=== PATIENT | male | born 1945 | race Caucasian/White ===

== ENCOUNTER 2022-02-26 10:05 | Outpatient (CLI) | payer MEDICARE, SELFPAY ==
[2022-02-26 14:08] LABS: Chloride* 98 mmol/L (96-114); Potassium* 4.4 mmol/L (3.6-5.1); Sodium* 134 mmol/L (135-149)
[2022-02-26 14:10] LABS: Estimated Glomerular Filt Rate 78 ml/min
[2022-02-26 14:11] LABS: Blood Urea Nitrogen* 10 mg/dL (7-30); Calcium* 10.3 mg/dL (8.4-10.6); Carbon Dioxide* 24 mmol/L (20-32); Glucose* 97 mg/dL (60-115)
== END 2022-02-26 10:06 | disposition home or self-care (01) ==
LOC: FRMREF 10:18
PROVIDERS: PCP Family Medicine; Visit Provider Family Medicine
DX: R10.9 Unspecified abdominal pain (principal); I10 Essential (primary) hypertension
CPT/HCPCS: 80048

== ENCOUNTER 2022-03-12 08:52 | Outpatient (CLI) | payer MEDICARE, SELFPAY ==
[2022-03-19 08:08] LABS: Ova and Parasite, Fecal Negative (Negative)
== END 2022-03-12 08:53 | disposition home or self-care (01) ==
PROVIDERS: PCP Family Medicine; Visit Provider Family Medicine
DX: R19.7 Diarrhea, unspecified (principal)
CPT/HCPCS: 87045; 87046; 87077; 87177; 87209; 87427

== ENCOUNTER 2022-03-25 16:10 | Outpatient (CLI) | payer MEDICARE, SELFPAY ==
[2022-03-25 13:36] LABS: Albumin* 4.4 g/dL (3.3-5.0); Chloride* 102 mmol/L (96-114); Sodium* 136 mmol/L (135-149)
[2022-03-25 13:37] LABS: Potassium* 4.4 mmol/L (3.6-5.1)
[2022-03-25 13:39] LABS: Alanine Aminotransferase* 28 U/L (4-50); Alkaline Phosphatase* 107 U/L (40-150); Aspartate Amino Transferase* 35 U/L (12-35); Bilirubin Total* 0.9 mg/dL (0.1-1.5); Blood Urea Nitrogen* 11 mg/dL (7-30); Calcium* 10.1 mg/dL (8.4-10.6); Carbon Dioxide* 25 mmol/L (20-32); Cholesterol* 151 mg/dL (90-199); Estimated Glomerular Filt Rate 78 ml/min; Glucose* 101 mg/dL (60-115); Total Protein* 7.2 g/dL (6.0-8.3); Triglycerides* 84 mg/dL (40-149)
[2022-03-25 13:40] LABS: HDL Cholesterol* 60 mg/dL (>=40); LDL Cholesterol Calculated 74 mg/dL (<100); Magnesium* 1.9 mg/dL (1.5-2.6)
[2022-03-25 22:27] LABS: Microalbumin Urine 1 mg/dL
[2022-03-25 22:29] LABS: Creatinine Urine 66.2 mg/dL; Microalbumin Creatinine Ratio 10 mg/g (0-30)
== END 2022-03-25 16:11 | disposition home or self-care (01) ==
PROVIDERS: PCP Family Medicine; Visit Provider Family Medicine
DX: E78.5 Hyperlipidemia, unspecified (principal); I10 Essential (primary) hypertension
CPT/HCPCS: 80053; 80061; 82043; 82570; 83735

== ENCOUNTER 2022-08-16 08:16 | Outpatient (CLI) | payer MEDICARE, SELFPAY ==
[2022-08-16 13:09] LABS: Albumin* 4.3 g/dL (3.3-5.0); Chloride* 103 mmol/L (96-114)
[2022-08-16 13:10] LABS: Potassium* 4.7 mmol/L (3.6-5.1); Sodium* 136 mmol/L (135-149)
[2022-08-16 13:12] LABS: Alanine Aminotransferase* 29 U/L (4-50); Alkaline Phosphatase* 84 U/L (40-150); Aspartate Amino Transferase* 30 U/L (12-35); Bilirubin Total* 0.8 mg/dL (0.1-1.5); Blood Urea Nitrogen* 12 mg/dL (7-30); Carbon Dioxide* 29 mmol/L (20-32); Cholesterol* 152 mg/dL (90-199); Estimated Glomerular Filt Rate 78 ml/min; Glucose* 103 mg/dL (60-115); Total Protein* 7.2 g/dL (6.0-8.3)
[2022-08-16 13:13] LABS: Calcium* 9.9 mg/dL (8.4-10.6); HDL Cholesterol* 59 mg/dL (>=40); LDL Cholesterol Calculated 79 mg/dL (<100); Triglycerides* 72 mg/dL (40-149)
[2022-08-16 13:28] LABS: Creatinine Urine 95.4 mg/dL
[2022-08-16 13:32] LABS: Microalbumin Creatinine Ratio 10 mg/g (0-30); Microalbumin Urine 1 mg/dL
[2022-08-16 13:45] LABS: PSA Screen* 1.78 ng/mL (0.10-4.00)
== END 2022-08-16 08:17 | disposition home or self-care (01) ==
LOC: FRMREF 08:18
PROVIDERS: PCP Family Medicine; Visit Provider Family Medicine
DX: E78.5 Hyperlipidemia, unspecified (principal); I10 Essential (primary) hypertension; Z12.5 Encounter for screening for malignant neoplasm of prostate
CPT/HCPCS: 80053; 80061; 82043; 82570; 84153

== ENCOUNTER 2023-01-08 11:56 | Outpatient (CLI) | payer MEDICARE, SELFPAY | END 2023-01-08 11:57 | disposition home or self-care (01) | PROVIDERS: PCP Family Medicine; Visit Provider Family Medicine | DX: E87.1 Hypo-osmolality and hyponatremia (principal); I10 Essential (primary) hypertension; R07.9 Chest pain, unspecified | CPT/HCPCS: 80048 ==

== ENCOUNTER 2023-03-26 07:29 | Outpatient (CLI) | payer MEDICARE, SELFPAY | END 2023-03-26 07:30 | disposition home or self-care (01) | LOC: NFLDREF 15:30 | PROVIDERS: PCP Family Medicine; Referring Provider Family Medicine | DX: E87.1 Hypo-osmolality and hyponatremia (principal); I10 Essential (primary) hypertension; E55.9 Vitamin D deficiency, unspecified; E78.5 Hyperlipidemia, unspecified; R33.9 Retention of urine, unspecified | CPT/HCPCS: 80053; 80061; 82306; 83735; 84153 ==

== ENCOUNTER 2023-07-07 10:05 | Outpatient (CLI) | payer MEDICARE, SELFPAY ==
--- OUTSIDE RECORDS SUMMARY | 2023-07-07 10:35 | XMS_ITS | Continuity of Care Document ---
Author Name [facility] Organization [facility] Care Team Providers Care Medical Imaging Technician Name Role Phone [facility] Unavailable Unavailable Problems Combined list of problems from Department of Defense and Veterans Affairs facilities. It does not include entries that were removed or entered in error. Problem Status Onset Date Problem Type Date of Resolution Comments Source Cataract (SCT 74661205) Active Condition Apr 12, 2020 Entered By: MIRANDA LAUGHLIN Comment: Right cataract surgery [facility] Essential hypertension (SNOMED CT 14692684) Active Condition [facility] Family social history Active Condition Mar 27, 2021 Entered By: MIRANDA LAUGHLIN Comment[facility] Entered By: MIRANDA LAUGHLIN Comment: Quit smoking >15 yrs ago.Apr 04, 2022 Entered By: MIRANDA LAUGHLIN Comment: Cares for at home, she has early AD. 6 children, assist with care. [facility] Gastro-esophageal reflux disease (SNOMED CT 337760867) Active Condition [facility] Glaucoma Active Condition [facility] Hearing Loss, Partial * (ICD-9-CM 389.9) [facility] History of Polyp of Colon (SCT 866383873) Active Condition Apr 12, 2020 Entered By: MIRANDA LAUGHLIN Comment: Last colonscopy 12/2014 at [facility] in [place]: 1 polyp, repeat 5 years [facility] History of surgery Active Condition Apr 12, 2020 Entered By: MIRANDA LAUGHLIN Comment: T&AOct 2019 Entered By: MIRANDA LAUGHLIN Comment: TURP [facility] Hydronephrosis [facility] Hyperlipidemia [facility] Impaired glucose tolerance Active Condition [facility] Male erectile disorder (ICD-9-CM 302.72/607.84) [facility] Neurogenic bladder Active Condition Apr 04, 2022 Entered By: MIRANDA LAUGHLIN Comment: ISC 6 x daily [facility] Osteopenia Active Condition Apr 12 Entered By: MIRANDA LAUGHLIN Comment: Dexa scan 06/08; osteopeniaOct 2019 Entered By: MIRANDA LAUGHLIN Comment: T6 compression fracture [facility] Personal History of Exposure to Agent [place] (ICD-9-CM V15.89) Active Condition [facility] Subjective tinnitus (ICD-9-CM 388.31) Active Condition [facility] Syncope Active Condition [facility] Diagnosis: ICD-10-CM I10 Essential (primary) hypertension Active Diagnosis [facility] Diagnosis: ICD-10-CM 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 Medication Details Route Status Patient Instructions Prescription Expires Prescription Number Last Dispense Date Ordering Provider Order Date Source ALENDRONATE 70MG TAB TAKE ONE TABLET BY MOUTH EVERY WEEK FOR OSTEOPOR OSIS -TAKE FIRST THING IN THE MORNING WITH WATER ONLY -AFTER TAKING, DO NOT EAT OR DRINK FOR 30 MINUTES AND REMAIN UPRIGHT FOR 30 MINUTES ORALLY ACTIVE 04/11/2024 [id number] 3 MUNIRA LAUGHLIN F 2022 [facility] ALENDRONATE 70MG TAB TAKE ONE TABLET BY MOUTH EVERY WEEK FOR OSTEOPOR OSIS -TAKE FIRST THING IN THE MORNING WITH WATER ONLY -AFTER TAKING, DO NOT EAT OR DRINK FOR 30 MINUTES AND REMAIN UPRIGHT FOR 30 MINUTES ORALLY DISCONT INUED 04/05/2023 [id number] 3 MUNIRA LAUGHLIN 2021 [facility] AMLODIPINE BESYLATE 10MG TAB TAKE ONE TABLET BY MOUTH EVERY DAY ORALLY ACTIVE GARRICK SALAZAR ANTLyubov A 2012 [facility] ATORVASTATI N [place] 80MG TAB TAKE ONE-HALF TABLET BY MOUTH AT BEDTIME ORALLY ACTIVE NAZANIN WALLACE A 2015 [facility] CEPHALEXIN 250MG CAP TAKE 1 CAPSULE BY MOUTH DAILY ORALLY ACTIVE MUNIRA LAUGHLIN LSEY F 2020 [facility] FLUTICASONE SOLN,NASAL SPRAY IN EACH NOSTRIL NASAL ACTIVE WALLACENAZANINA A 2014 [facility] LOSARTAN 50MG TAB TAKE TWO TABLETS BY MOUTH EVERY DAY ORALLY ACTIVE MUNIRA LAUGHLIN LSEY F 2020 [facility] LUBRICATING JELLY,TOP,B ACTERIOSTAT IC APPLY JELLY DIRECTED CHEMICAL PACKAGER AL USE ONLY ACTIVE 04/11/2024 [id number] 4 MUNIRA LAUGHLIN LSEY F 2022 [facility] LUBRICATING JELLY,TOP,B ACTERIOSTAT IC APPLY JELLY DIRECTED CHEMICAL PACKAGER AL USE ONLY DISCONT INUED 04/05/2023 [id number] 3 MUNIRA LAUGHLIN LSEY F 2021 [facility] METOPROLOL SUCCINATE 50MG TAB,SA TAKE ONE TABLET BY MOUTH TWICE A DAY ORALLY ACTIVE MUNIRA LAUGHLIN LSEY F 2022 [facility] OMEPRAZOLE 20MG CAP,EC TAKE 1 CAPSULE BY MOUTH EVERY DAY ORALLY ACTIVE NAZANIN WALLACE A 2014 [facility] POLYVINYL ALCOHOL 1.4%/POVIDO NE (PF) SOLN,OPH INSTILL 1 DROP IN RIGHT EYE SIX TIMES A DAY NEEDED FOR EYE IRRITATI ON RIGHT EYE ACTIVE 02/20/2024 [id number] 3 TRACE HENNESSY RTHA 2022 [facility] POTASSIUM CHLORIDE 10MEQ TAB,SA TAKE ONE TABLET BY MOUTH ORALLY ACTIVE MUNIRA LAUGHLIN LSEY F 2020 [facility] SILDENAFIL CITRATE 100MG TAB TAKE ONE TABLET BY MOUTH NEEDED FOR ERECTILE DYSFUNCT ION ORALLY ACTIVE MUNIRA LAUGHLINEY F 2020 [facility] Allergies, Adverse Reactions, Alerts Combined list of allergies from Department of Defense and Veterans Affairs facilities. It does not include entries that were removed or entered in error. Substance Category Reaction Severity Reaction type Status Date Reported Comments Source SULFA DRUGS Propensity to adverse reactions to drug (finding) active 3 [facility] Immunizations Combined list of available immunizations from the Department of Defense and Veterans Affairs facilities. Immunization Series Date Given Administered By Site Reaction Lot Number CVX Code Drug Spa Assistant Manager Status Comments Source INFLUENZA, HIGH-DOSE, QUADRIVALENT 2022 197 complet [facility] PNEUMOCOCCAL CONJUGATE PCV 13 2022 133 complet [facility] COVID-19 (PFIZER), MRNA, LNP-S, BIVALENT, PF, 30 MCG/0.3 ML DOSE 2021 300 complet [facility] INFLUENZA, HIGH-DOSE, QUADRIVALENT 2021 197 complet [facility] INFLUENZA, UNSPECIFIED FORMULATION 2021 88 complet [facility] COVID-19 (PFIZER), MRNA, LNP-S, PF, 30 MCG/0.3 ML DOSE 4 2020 208 complet [facility] COVID-19 (PFIZER), MRNA, LNP-S, PF, 30 MCG/0.3 ML DOSE 3 2020 208 complet [facility] INFLUENZA, HIGH-DOSE, QUADRIVALENT 2020 197 complet [facility] INFLUENZA, UNSPECIFIED FORMULATION 2020 88 complet [facility] COVID-19 (PFIZER), MRNA, LNP-S, PF, 30 MCG/0.3 ML DOSE 2020 208 complet [facility] ZOSTER RECOMBINANT 2020 187 complet [facility] ZOSTER RECOMBINANT 2 2020 187 complet ed [facility] COVID-19 (PFIZER), MRNA, LNP-S, PF, 30 MCG/0.3 ML DOSE 2 2020 208 complet [facility] COVID-19 (PFIZER), MRNA, LNP-S, PF, 30 MCG/0.3 ML DOSE 2020 208 complet [facility] COVID-19 (PFIZER), MRNA, LNP-S, PF, 30 MCG/0.3 ML DOSE 1 2020 208 complet [facility] ZOSTER RECOMBINANT 1 2019 187 complet ed [facility] TDAP 2019 115 complet ed [facility] INFLUENZA, UNSPECIFIED FORMULATION 2019 88 complet ed [facility] INFLUENZA, HIGH-DOSE, QUADRIVALENT 2019 197 complet ed [facility] ZOSTER RECOMBINANT 1 2019 187 complet ed [facility] INFLUENZA, RECOMBINANT, QUADRIVALENT, INJECTABLE, PRESERVATIVE FREE 2018 185 complet ed [facility] INFLUENZA, HIGH DOSE SEASONAL 2016 135 complet ed [facility] INFLUENZA, HIGH DOSE SEASONAL 2016 135 complet ed [facility] INFLUENZA, HIGH DOSE SEASONAL 2015 135 complet ed [facility] INFLUENZA, SEASONAL, INJECTABLE 2014 141 complet ed [facility] PNEUMOCOCCAL CONJUGATE PCV 13 2014 133 complet ed [facility] INFLUENZA, SEASONAL, INJECTABLE 2013 141 complet ed [facility] INFLUENZA, HIGH DOSE SEASONAL 2013 135 complet ed [facility] TDAP 2013 115 complet ed [facility] hkline [id number] 11/21/15 [facility] INFLUENZA, UNSPECIFIED FORMULATION 2012 88 complet ed [facility] INFLUENZA, SEASONAL, INJECTABLE, PRESERVATIVE FREE 2012 140 complet ed [facility] ZOSTER LIVE 2012 121 complet ed [employer] [facility] INFLUENZA, SEASONAL, INJECTABLE, PRESERVATIVE FREE 2011 140 complet ed [facility] PNEUMOCOCCAL POLYSACCHARID E PPV23 2011 33 complet ed [facility] INFLUENZA, UNSPECIFIED FORMULATION 2011 88 complet ed [facility] PNEUMOCOCCAL, UNSPECIFIED FORMULATION 2011 109 complet ed [facility] INFLUENZA, SEASONAL, INJECTABLE 2010 141 complet ed [facility] INFLUENZA, SEASONAL, INJECTABLE, PRESERVATIVE FREE 2009 140 complet ed [facility] INFLUENZA, SEASONAL, INJECTABLE, PRESERVATIVE FREE 2008 140 complet ed [facility] INFLUENZA, SEASONAL, INJECTABLE 2007 141 complet ed [facility] Encounters Combined list of: 1) Encounters from Department of [facility] facilities going back up to thelast 18 months. 2) Encounters from the Department of [facility] facilities going back up to 280 months. Location Location Details Encounter Type Encounter Number Reason For Visit Attending Provider ADM Date DC Date Status Disposition Source [place] [facility] Outpatient Encounter [id number] 02/26 [facility] [place] [facility] Outpatient Encounter [id number] 02/26 [facility] [place] [facility] Outpatient Encounter [id number] 03/23 [facility] [place] [facility] Outpatient Encounter [id number] [facility] O/P EST MOD 30-39 MIN [id number] Diagnos is: ICD-10- CM H40.141 3 Capslr glaucom a w/pseud xf lens, right eye, severe stage<b r/> TORSTEN HENNESSY SHARON 04/02 [facility] [place] [facility] OFFICE O/P EST HI 40-54 MIN [id number] Diagnos is: ICD-10- CM E78.5 Hyperli pidemia , unspeci fied
GEREMIAS LAUGHLIN SEArnold F 04/04 [facility] [place] [facility] Outpatient Encounter [id number] 04/08 [facility] [place] [facility] Outpatient Encounter [id number] [facility] VISUAL FIELD EXAMINATIO N(S) [id number] Diagnos is: ICD-10- CM H40.141 3 Capslr glaucom a w/pseud xf lens, right eye, severe stage<b r/> JEROME GOMEZ 10/01 [facility] OFFICE O/P EST MOD 30-39 MIN [id number] Diagnos is: ICD-10- CM H40.141 3 Capslr glaucom a w/pseud xf lens, right eye, severe stage<b r/> ERIC RASHI DOZIER A 10/01 [facility] Outpatient Encounter [id number] QUINCYDAVI STEPHANIE MARRUFO 02/19 [facility] OFFICE O/P EST MOD 30-39 MIN [id number] Diagnos is: ICD-10- CM H40.141 3 Capslr glaucom a w/pseud xf lens, right eye, severe stage<b r/> HAYDEN HERNANDEZ 02/19 [facility] Outpatient Encounter [id number] 03/19 [facility] Outpatient Encounter [id number] 03/23 [facility] VISUAL FIELD EXAMINATIO N(S) [id number] Diagnos is: ICD-10- CM H40.10X 3 Unspeci fied open-an gle glaucom a, severe stage<b r/> JESS GOMEZ 04/01 [facility] OFFICE O/P EST MOD 30-39 MIN [id number] Diagnos is: ICD-10- CM H40.141 3 Capslr glaucom a w/pseud xf lens, right eye, severe stage<b r/> TORSTEN HENNESSY 04/01 [facility] Outpatient Encounter [id number] 04/01 [facility] Outpatient Encounter [id number] Diagnos is: ICD-10- CM I10 Essenti al (primar y) hyperte nsion<b r/> GEREMIAS LAUGHLIN F 04/11 [facility] Social History Combined list of available smoking, tobacco, and other social history from Department of Defense and Veterans Affairs facilities. Social History Type Response Date Comment Sourc e Tobacco smoking status NHIS VA-TOBACCO FORMER USER 04/11/2023 [facility] History of tobacco use VA-TOBACCO QUIT 1 5 YRS OR MORE 04/11/2023 [facility] History of tobacco use VA-TOBACCO FORMER USER 04/04/2022 [facility] History of tobacco use VA-TOBACCO FORMER USER 03/28/2021 [facility] History of tobacco use VA-TOBACCO FORMER USER 04/12/2020 [facility] History of tobacco use VA-TOBACCO FORMER USER 06/24/2018 [facility] History of tobacco use FORMER TOBACCO US ER 7Y OR GREATER 09/23/2017 [facility] History of tobacco use FORMER TOBACCO US ER 7Y OR GREATER 01/02/2017 [facility] History of tobacco use FORMER TOBACCO US ER 7Y OR GREATER 01/18/2016 [facility] History of tobacco use FORMER TOBACCO US ER 7Y OR GREATER 01/10/2015 [facility] History of tobacco use FORMER TOBACCO US ER 7Y OR GREATER 01/06/2014 [facility] History of tobacco use FORMER TOBACCO US ER 7Y OR GREATER 10/19/2012 [facility] Plan of Care List of future care activities from Department of Veterans Affairs facilities. Additional future care activities may be listed in the Assessment and Plan section. Date/Time Care Activity Care Activity Detail Facili ty 09/30/2023 AMBULATORY - SURGERY AMBULATORY - SURGERY [facility]
--- OUTSIDE RECORDS SUMMARY | 2023-07-07 10:36 | XMS_ITS | Clinical Summary ---
Author Name Unknown Organization [facility] Address [place], [place] [address] Care Team Providers Care Telecommunications Operator Name Role Phone Matias Terry MD Primary Care Provider [phone] Allergies Active Allergy Reactions Criticality Noted Date Comments Sulfa (Sulfonamide Antibiotics) Anaphylaxis Medications Medication Sig Dispensed Refills Start Date End Date Status ASPIRIN 81 MG TAB, DELAYED RELEASE take 1 tablet (81mg) by oral route once daily 0 11/12/2005 Active VIAGRA 100 MG TABIndications:Impot ence of organic origin Take one half to one tablet 30 minutes to 4 hours before sexual activity (optimally 1 hour). Do not exceed one dose daily. 10 3 06/02/2006 Active CYCLOBENZAPRINE 10 MG TAB take 1 tablet (10mg) by oral route 2 times per day 10 0 10/30/2006 Active hydrochlorothiazide (HCTZ) 25 mg tablet Take 2 tablets by mouth once daily. 30 tablet 0 11/17/2012 Active lisinopril (PRINIVIL; ZESTRIL) 20 mg tablet Take 1 tablet by mouth once daily. 0 11/17/2012 Active Omeprazole 20 mg tablet Take 1 tablet by mouth once daily. 0 11/17/2012 Active Catheter (SELF-CATH) 14-16 Fr- misc As directed. 120 Each 3 07/20/2013 Active pravastatin (PRAVACHOL) 20 mg tablet Take 1 tablet by mouth at bedtime. 0 10/19/2013 Active amLODIPine (NORVASC) 10 mg tablet Take 1 tablet by mouth once daily. 0 10/19/2013 Active losartan (COZAAR) 50 mg tablet Take 1/2 tablet by mouth daily 0 02/14/2015 Active Active Problems Problem Noted Date Diagnosed Date Colon polyp 04/25/2010 Overview: Colonoscopy 03/2010 polyp repeat in 5 years Colonoscopy 01/2015 polyp repeat in 5 years Myopia 11/12/2005 Presbyopia 11/12/2005 Hypermetropia 11/12/2005 Regular astigmatism 11/12/2005 Cortical senile cataract 11/12/2005 TOBACCO USE 06/07/2005 HYPERCHOLESTEROLEMIA, PURE 06/07/2005 SINUSITIS - ACUTE 11/27/2004 Unspecified essential hypertension 01/06/2004 EXAMINATION, ROUTINE MEDICAL 05/18/2001 FREQUENCY, URINARY 05/18/2001 IMPOTENCE, 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 ~? Prostate cancer. Relation Name Status Comments Other Social History Tobacco Use Types Packs/Day Years Used Date Smoking Tobacco: Former Cigarettes Q uit: 06/24/2005 Smokeless Tobacco: Never Tobacco Cessation:Counseling Given: Yes Alcohol Use Standard Drinks/Week Comments Yes 240 (1 standard drink = 0.6 oz p ure alcohol) Sex and Gender Information Value Date Recorded Sex Assigned at Not on file Gender Identity Not on file Sexual Orientation Not on file Obstetrics History Last Filed Vital Signs Vital Sign Reading Time Taken Comments Blood Pressure 133/82 02/14/2015 8:49 AM CDT Pulse 75 02/14/2015 8:49 AM CDT Temperature 36.7 ??C (98 ??F) 10/19/2013 8:06 AM CDT Respiratory Rate 20 08/07/2005 4:45 PM CLIP RIVETER Oxygen Saturation 100% 02/14/2015 8:49 AM CDT Inhaled Oxygen Concentration - - Weight 91.6 kg (202 lb) 10/19/2013 8:06 AM CDT Height 185.4 cm (6' 1) 10/19/2013 8:06 AM CDT Body Mass Index 26.65 10/19/2013 8:06 AM CDT Plan of Treatment Health Maintenance Due Date Last Done Comments COVID-19 vaccine series (#1) [birth year]27/1946 Tdap 1956 Depression screening for age 12+ 1957 BMI (ht and wt on same day) for age 18+ 09/26/1963 Hepatitis C screening for age 18-79 09/26/1963 Tetanus booster 1965 Zoster (shingles) series for age 50+ (1 of 2) 09/25/18 96 Pneumococcal series for age 65+ (1 of 1 - PCV) 011 Influenza for age 65+ 02/21/2023 Care Teams Telecommunications Operator Relationship Specialty Start Date End Date Matias Terry MD PCP - General Family Practice 02/14/15
== END 2023-07-07 10:06 | disposition home or self-care (01) ==
LOC: FRMREF 10:06
PROVIDERS: PCP Family Medicine; Visit Provider Physician Assistant Medical
DX: R42 Dizziness and giddiness (principal); I10 Essential (primary) hypertension; N30.01 Acute cystitis with hematuria; B96.1 Klebsiella pneumoniae [K. pneumoniae] as the cause of diseases classified elsewhere; E55.9 Vitamin D deficiency, unspecified
CPT/HCPCS: 80048; 82306; 87086; 87186

== ENCOUNTER 2024-01-19 10:13 | Outpatient (CLI) | payer MEDICARE, SELFPAY ==
--- OUTSIDE RECORDS SUMMARY | 2024-01-19 10:25 | XMS_ITS | Clinical Summary ---
Author Organization [facility] Address [place], [place] [address] Care Team Providers Care Crawler Crane Operator Name Role Phone Matias Terry MD Primary Care Provider [phone] Allergies Active Allergy Reactions Criticality Noted Date [...] CDT Respiratory Rate 20 08/07/2005 4:45 PM FUNCTIONAL MENTAL DISABILITY TEACHER Oxygen Saturation 100% 02/14/2015 8:49 AM CDT Inhaled Oxygen Concentration - - Weight 91.6 kg (202 lb) 10/19/2013 8:06 AM CDT Height 185.4 cm (6' 1) 10/19/2013 8:06 AM CDT Body Mass Index 26.65 10/19/2013 8:06 AM CDT Plan of Treatment Health Maintenance Due Date Last Done Comments Tdap 1956 Depression screening for age 12+ 1957 BMI (ht and wt on same day) for age 18+ 09/26/1963 Hepatitis C screening for age 18-79 09/26/1963 Tetanus booster 1965 Zoster (shingles) series for age 50+ (1 of 2) 09/25/18 96 Pneumococcal series for age 65+ (1 of 1 - PCV) 011 COVID-19 vaccine series (1 - 2022-24 season) 3 Influenza for age 65+ 02/22/2024 Care Teams Crawler Crane Operator Relationship Specialty Start Date End Date Matias Terry MD PCP - General Family Practice 02/14/15
--- OUTSIDE RECORDS SUMMARY | 2024-01-19 10:25 | XMS_ITS | Continuity of Care Document ---
Author Name [facility] Organization [facility] Care Team Providers Care Dietary Manager Name Role Phone [facility] Unavailable Unavailable Problems Combined list of problems from Department of Defense and Veterans Affairs facilities. It does not include entries that were removed or entered in error. Problem Status Onset Date Problem Type Date of Resolution Comments Source Cataract (SCT [id number]) Active Condition Apr 12, 2020 Entered By: MIRANDA LAUGHLIN Comment: Right cataract surgery [facility] Essential hypertension (SNOMED CT 95160983) Active Condition [facility] Family social history Active Condition Mar 27, 2021 Entered By: MIRANDA LAUGHLIN Comment[facility] Entered By: MIRANDA ALUGHLIN Comment: Quit smoking >15 yrs ago.Apr 04, 2022 Entered By: MIRANDA LAUGHLIN Comment: Cares for at home, she has early AD. 6 children, assist with care. [facility] Gastro-esophageal reflux disease (SNOMED CT 225956274) Active Condition [facility] Glaucoma Active Condition [facility] Hearing Loss, Partial * (ICD-9-CM 389.9) [facility] History of Polyp of Colon (SCT 102935769) Active Condition Apr 12, 2020 Entered By: MIRANDA LAUGHLIN Comment: Last colonscopy 12/2014 at [facility] in [place]: 1 polyp, repeat 5 years [facility] History of surgery Active Condition Apr 12, 2020 Entered By: MIRANDA LAUGHLIN Comment: T&AOct 2019 Entered By: MIRANDA LAUGHLIN Comment: TURP [facility] Hydronephrosis [facility] Hyperlipidemia [facility] Impaired glucose tolerance Active Condition [facility] Male erectile disorder (ICD-9-CM 302.72/607.84) [facility] Neurogenic bladder Active Condition Apr 04, 2022 Entered By: MIRANDA LAUGHLIN Comment: ISC 6 x daily [facility] Osteopenia Active Condition Apr 12 020 Entered By: MIRANDA LAUGHLIN Comment: Dexa scan 06/08; osteopeniaOct 2019 Entered By: MIRANDA LAUGHLIN Comment: T6 compression fracture [facility] Personal History of Exposure to Agent Ware (ICD-9-CM V15.89) Active Condition [facility] Subjective tinnitus (ICD-9-CM 388.31) Active Condition [facility] Syncope Active Condition [facility] Diagnosis: ICD-10-CM H40.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 Medication Details Route Status Patient Instructions Prescription Expires Prescription Number Last Dispense Date Ordering Provider Order Date Order Qty Source ALENDRONATE 70MG TAB ALENDRON ATE 70MG TAB Active TAKE ONE TABLET BY MOUTH EVERY WEEK FOR OSTEOPOR OSIS -TAKE FIRST THING IN THE MORNING WITH WATER ONLY -AFTER TAKING, DO NOT EAT OR DRINK FOR 30 MINUTES AND REMAIN UPRIGHT FOR 30 MINUTES Apr 11, 2023Apr 11, 2024 [id number] E Jan 02, 2024 David LAUGHLIN [facility] ORAL ACTIVE 04/11/2024 [id number] MUNIRA LAUGHLIN F 2022 12 [facility] ALENDRONATE 70MG TAB ALENDRON ATE 70MG TAB Disconti nued TAKE ONE TABLET BY MOUTH EVERY WEEK FOR OSTEOPOR OSIS -TAKE FIRST THING IN THE MORNING WITH WATER ONLY -AFTER TAKING, DO NOT EAT OR DRINK FOR 30 MINUTES AND REMAIN UPRIGHT FOR 30 MINUTES Apr 04, 2022 12 Apr 05, 2023 [id number] D Feb 03, 2023 David LAUGHLIN [facility] ORAL DISCONT INUED 04/05/2023 [id number] MUNIRA LAUGHLIN 2021 12 [place] [facility] AMLODIPINE BESYLATE 10MG TAB AMLODIPI NE BESYLATE 10MG TAB Non-VA TAKE ONE TABLET BY MOUTH EVERY DAY Dec 09, 2012 Non-[facility] Document ed by: HILDA SALAZAR Document ed at: [facility] ORAL ACTIVE GARRICK SALAZAR A 2012 [facility] ATORVASTATI N CA 80MG TAB ATORVAST ATIN CA 80MG TAB Non-VA TAKE ONE-HALF TABLET BY MOUTH AT BEDTIME Jan 18, 2016 Non-VA Document ed by: Kassidy WALLACE Document ed at: [facility] ORAL ACTIVE NAZANIN WALLACE A 2015 [facility] CEPHALEXIN 250MG CAP CEPHALEX IN 250MG CAP Non-VA TAKE 1 CAPSULE BY MOUTH DAILY Mar 28, 2021 Non-VA Document ed by: David LAUGHLIN Document ed at: [facility] ORAL ACTIVE MUNIRA LAUGHLIN F 2020 [facility] FLUTICASONE SOLN,NASAL FLUTICAS ONE SOLN,ABENA AL Non-VA SPRAY IN EACH NOSTRIL Jan 10, 2015 Non-VA Document ed by: Kassidy WALLACE Document ed at: [facility] NASAL ACTIVE NAZANIN AWLLACE A 2014 [facility] LOSARTAN 50MG TAB LOSARTAN 50MG TAB Non-VA TAKE TWO TABLETS BY MOUTH EVERY DAY Mar 28, 2021 Non-VA Document ed by: David LAUGHLIN Document ed at: [facility] ORAL ACTIVE MUNIRA LAUGHLINEY F 2020 [facility] LUBRICATING JELLY,TOP,B ACTERIOSTAT IC LUBRICAT ING JELLY,TO P,BACTER IOSTATIC Active APPLY JELLY DIRECTED FRUIT GROWER AL USE ONLY Apr 11, 2023 360 Apr 11, 2024 [id number] K November 08, 2023 David LAUGHLIN [facility] ACTIVE 04/11/2024 [id number] MUNIRA LAUGHLINEY F 2022 360 [facility] LUBRICATING JELLY,TOP,B ACTERIOSTAT IC LUBRICAT ING JELLY,TO P,BACTER IOSTATIC Disconti nued APPLY HONG DIRECTED FRUIT GROWER AL USE ONLY Apr 04, 2022 360 Apr 05, 2023 [id number] J November 10, 2022 David LAUGHLIN [facility] DISCONT INUED 04/05/2023 [id number] MUNIRA LAUGHLIN LSEY F 2021 360 [facility] METOPROLOL SUCCINATE 50MG TAB,SA METOPROL OL SUCCINAT E 50MG TAB,SA Non-VA TAKE ONE TABLET BY MOUTH TWICE A DAY Apr 30, 2023 Non-VA Document ed by: David LAUGHLIN Document ed at: [facility] ORAL ACTIVE MUNIRA LAUGHLINEY F 2022 [facility] OMEPRAZOLE 20MG CAP,EC OMEPRAZO LE 20MG CAP,EC Non-VA TAKE 1 CAPSULE BY MOUTH EVERY DAY Jan 10, 2015 Non-VA Document ed by: Kassidy WALLACE Document ed at: [facility] ORAL ACTIVE NAZANIN WALLACE 2014 [facility] POLYVINYL ALCOHOL 1.4%/POVIDO NE (PF) SOLN,OPH POLYVINY L ALCOHOL 1.4%/POV IDONE (PF) SOLN,OPH Active INSTILL 1 DROP IN RIGHT EYE SIX TIMES A DAY NEEDED FOR EYE IRRITATI ON FOR EYE IRRITATI ON November 07, 2023 120 November 07, 2024 [id number] A November 07, 2023 Ton HENNESSY [facility] OPHTHA LMIC ACTIVE 11/07/2024 [id number] 4 TRACE HENNESSY RTLARA 2023 120 [facility] POLYVINYL ALCOHOL 1.4%/POVIDO NE (PF) SOLN,OPH POLYVINY L ALCOHOL 1.4%/POV IDONE (PF) SOLN,OPH Disconti nued INSTILL 1 DROP IN RIGHT EYE SIX TIMES A DAY NEEDED FOR EYE IRRITATI ON FOR EYE IRRITATI ON Feb 19, 2023 120 Feb 20, 2024 [id number] Feb 19, 2023 Ton HENNESSY [facility] OPHTHA LMIC DISCONT INUED 02/20/2024 [id number] TRACE HENNESSY RTHA 2022 120 [facility] POTASSIUM CHLORIDE 10MEQ TAB,SA POTASSIU M CHLORIDE 10MEQ TAB,SA Non-VA TAKE ONE TABLET BY MOUTH Mar 28, 2021 Non-VA Document ed by: David LAUGHLIN Document ed at: [facility] ORAL ACTIVE MUNIRA LAUGHLINEY F 2020 [facility] SILDENAFIL CITRATE 100MG TAB SILDENAF IL CITRATE 100MG TAB Non-VA TAKE ONE TABLET BY MOUTH NEEDED FOR ERECTILE DYSFUNCT ION Mar 28, 2021 Non-VA Document ed by: David LAUGHLIN Document ed at: [facility] ORAL ACTIVE MUNIRA LAUGHLINEY F 2020 [facility] Allergies, Adverse Reactions, Alerts Combined list of allergies from Department of Defense and Veterans Affairs facilities. It does not include entries that were removed or entered in error. Substance Category Reaction Severity Reaction type Status Date Reported Comments Source SULFA DRUGS Propensity to adverse reactions to drug (finding) active 3 [facility] Immunizations Combined list of available immunizations from the Department of Defense and Veterans Affairs facilities. Immunization Series Date Given Administered By Site Reaction Lot Number CVX Code Drug Dirt Shoveler Status Comments Source INFLUENZA, HIGH-DOSE, QUADRIVALENT 2022 197 complet ed [facility] PNEUMOCOCCAL CONJUGATE PCV 13 2022 133 complet ed [facility] COVID-19 (PFIZER), MRNA, LNP-S, BIVALENT, PF, 30 MCG/0.3 ML DOSE 2021 300 complet ed [facility] INFLUENZA, HIGH-DOSE, QUADRIVALENT 2021 197 complet ed [facility] INFLUENZA, UNSPECIFIED FORMULATION 2021 88 complet ed [facility] COVID-19 (PFIZER), MRNA, LNP-S, PF, 30 MCG/0.3 ML DOSE 4 2020 208 complet ed [facility] COVID-19 (PFIZER), MRNA, LNP-S, PF, 30 MCG/0.3 ML DOSE 3 10/01/ 2021 208 complet ed [facility] INFLUENZA, HIGH-DOSE, QUADRIVALENT 2020 197 complet ed [facility] INFLUENZA, UNSPECIFIED FORMULATION 2020 88 complet ed [facility] COVID-19 (PFIZER), MRNA, LNP-S, PF, 30 MCG/0.3 ML DOSE 2020 208 complet ed [facility] ZOSTER RECOMBINANT 2020 187 complet ed [facility] ZOSTER RECOMBINANT 2 2020 187 complet ed [facility] COVID-19 (PFIZER), MRNA, LNP-S, PF, 30 MCG/0.3 ML DOSE 2 2020 208 complet ed [facility] COVID-19 (PFIZER), MRNA, LNP-S, PF, 30 MCG/0.3 ML DOSE 2020 208 complet ed [facility] COVID-19 (PFIZER), MRNA, LNP-S, PF, 30 MCG/0.3 ML DOSE 1 2020 208 complet ed [facility] ZOSTER RECOMBINANT 1 2019 187 complet ed [facility] TDAP 2019 115 complet ed [facility] INFLUENZA, UNSPECIFIED FORMULATION 2019 88 complet [facility] INFLUENZA, HIGH-DOSE, QUADRIVALENT 2019 197 complet [facility] ZOSTER RECOMBINANT 1 2019 187 complet ed [facility] INFLUENZA, RECOMBINANT, QUADRIVALENT, INJECTABLE, PRESERVATIVE FREE 2018 185 complet ed [facility] INFLUENZA, HIGH DOSE SEASONAL 2016 135 complet ed [facility] INFLUENZA, HIGH DOSE SEASONAL 2016 135 complet ed [facility] INFLUENZA, HIGH DOSE SEASONAL 2015 135 complet ed [facility] INFLUENZA, SEASONAL, INJECTABLE 2014 141 complet ed [facility] PNEUMOCOCCAL CONJUGATE PCV 13 2014 133 complet ed [facility] INFLUENZA, SEASONAL, INJECTABLE 2013 141 complet ed [facility] INFLUENZA, HIGH DOSE SEASONAL 2013 135 complet ed [facility] TDAP 2013 115 complet ed [facility] [id number] 11/21/15 [facility] INFLUENZA, UNSPECIFIED FORMULATION 2012 88 complet ed [facility] INFLUENZA, SEASONAL, INJECTABLE, PRESERVATIVE FREE 2012 140 complet ed [facility] ZOSTER LIVE 2012 121 complet ed [employer] [facility] INFLUENZA, SEASONAL, INJECTABLE, PRESERVATIVE FREE 2011 140 complet ed [facility] PNEUMOCOCCAL POLYSACCHARID E PPV23 2011 33 complet ed [facility] INFLUENZA, UNSPECIFIED FORMULATION 2011 88 complet ed [facility] PNEUMOCOCCAL, UNSPECIFIED FORMULATION 2011 109 complet ed [facility] INFLUENZA, SEASONAL, INJECTABLE 2010 141 complet ed [facility] INFLUENZA, SEASONAL, INJECTABLE, PRESERVATIVE FREE 2009 140 complet ed [facility] INFLUENZA, SEASONAL, INJECTABLE, PRESERVATIVE FREE 2008 140 complet ed [facility] INFLUENZA, SEASONAL, INJECTABLE 2007 141 complet ed [facility] Encounters Combined list of: 1) Encounters from Department of [facility] Affairs facilities going back up to thelast 18 months. 2) Encounters from the Department of Defense facilities going back up to 280 months. Location Location Details Encounter Type Encounter Number Reason For Visit Attending Provider ADM Date DC Date Status Disposition Source [facility] Outpatient Encounter [id number] 08/19 [facility] VISUAL FIELD EXAMINATIO N(S) [id number] Diagnos is: ICD-10- CM H40.141 3 Capslr glaucom a w/pseud xf lens, right eye, severe stage<b r/> JEROME GOMEZ 10/01 [facility] OFFICE O/P EST MOD 30-39 MIN [id number] Diagnos is: ICD-10- CM H40.141 3 Capslr glaucom a w/pseud xf lens, right eye, severe stage<b r/> RASHI HERNANDEZ 10/01 [facility] Outpatient Encounter [id number] QUINCYDAVI STEPHANIE MARRUFO 02/19 [facility] OFF[facility] O/P EST MOD 30-39 MIN [id number] Diagnos is: ICD-10- CM H40.141 3 Capslr glaucom a w/pseud xf lens, right eye, severe stage<b r/> DAVID,HAYDEN PRAFUL L 02/19 [facility] Outpatient Encounter [id number] 03/19 [facility] Outpatient Encounter [id number] 03/23 [facility] VISUAL FIELD EXAMINATIO N(S) [id number] Diagnos is: ICD-10- CM H40.10X 3 Unspeci fied open-an gle glaucom a, severe stage<b r/> JESS GOMEZ 04/01 [facility] OFF[facility] O/P EST MOD 30-39 MIN [id number] Diagnos is: ICD-10- CM H40.141 3 Capslr glaucom a w/pseud xf lens, right eye, severe stage<b r/> TORSTEN HENNESSY 04/01 [facility] Outpatient Encounter [id number] 04/01 [facility] Outpatient Encounter [id number] Diagnos is: ICD-10- CM I10 Essenti al (primar y) hyperte nsion<b r/> GEREMIAS LAUGHLIN F 04/11 [facility] EXTENDED VISUAL FIELD XM [id number] Diagnos is: ICD-10- CM H40.141 3 Capslr glaucom a w/pseud xf lens, right eye, severe stage<b r/> SERENITY,BARRAGAN RA R 11/06 [facility] OFFICE O/P EST MOD 30 MIN [id number] Diagnos is: ICD-10- CM H40.141 3 Capslr glaucom a w/pseud xf lens, right eye, severe stage<b r/> TORSTEN HENNESSY SHARON 11/06 [facility] Social History Combined list of available smoking, tobacco, and other social history from Department of Defense and [facility] Affairs facilities. Social History Type Response Date Comment Sourc e Tobacco smoking status [facility] [place]-TOBACCO FORMER USER 04/11/2023 [facility] History of tobacco use [place] 1 5 YRS OR MORE 04/11/2023 [facility] History of tobacco use [place] FOR[place] 04/04/2022 [facility] History of tobacco use [place] QU[place] 1 5 YRS OR MORE 03/28/2021 [facility] History of tobacco use [place]-TOBACCO QUIT 1 5 YRS OR MORE 04/12/2020 [facility] History of tobacco use [place]-TOBACCO QUIT 1 5 YRS OR MORE 06/24/2018 [facility] History of tobacco use FORMER TOBACCO US ER 7Y OR GREATER 09/23/2017 [facility] History of tobacco use FORMER TOBACCO US ER 7Y OR GREATER 01/02/2017 [facility] History of tobacco use FORMER TOBACCO US ER 7Y OR GREATER 01/18/2016 [facility] History of tobacco use FORMER TOBACCO US ER 7Y OR GREATER 01/10/2015 [facility] History of tobacco use FORMER TOBACCO US ER 7Y OR GREATER 01/06/2014 [facility] History of tobacco use FORMER TOBACCO US ER 7Y OR GREATER 10/19/2012 [facility] Plan of Care List of future care activities from Department of [facility] Affairs facilities. Additional future care activities may be listed in the Assessment and Plan section. Date/Time Care Activity Care Activity Detail Facili ty 05/07/2024 AMBULATORY - SURGERY AMBULATORY - SURGERY [facility] 05/07/2024 AMBULATORY - SURGERY AMBULATORY - SURGERY [facility]
== END 2024-01-19 10:14 | disposition home or self-care (01) ==
PROVIDERS: PCP Family Medicine; Visit Provider Family Medicine
DX: R10.31 Right lower quadrant pain (principal)
CPT/HCPCS: 80048; 87086; 87186

== ENCOUNTER 2024-01-23 10:21 | Outpatient (CLI) | payer MEDICARE, SELFPAY ==
--- OUTSIDE RECORDS SUMMARY | 2024-01-23 10:23 | XMS_ITS | Continuity of Care Document ---
Author Name [facility] Organization [facility] Care Team Providers Care Executive Administrative Asst Name Role Phone [facility] Unavailable Unavailable Problems Combined list of problems from Department of Defense and Veterans Affairs facilities. It does not include entries that were removed or entered in error. Problem Status Onset Date Problem Type Date of Resolution Comments Source Cataract (SCT 66317206) Active Condition Apr 12, 2020 Entered By: MIRANDA LAUGHLIN Comment: Right cataract surgery [facility] Essential hypertension (SNOMED CT 55947509) Active Condition [facility] Family social history Active Condition Mar 27, 2021 Entered By: MIRANDA LAUGHLIN Comment[facility] Entered By: MIRANDA LAUGHLIN Comment: Quit smoking >15 yrs ago.Apr 04, 2022 Entered By: MIRANDA LAUGHLIN Comment: Cares for at home, she has early AD. 6 children, assist with care. [facility] Gastro-esophageal reflux disease (SNOMED CT 773917870) Active Condition [facility] Glaucoma Active Condition [facility] Hearing Loss, Partial * (ICD-9-CM 389.9) [facility] History of Polyp of Colon (SCT 407673261) Active Condition Apr 12, 2020 Entered By: MIRANDA LAUGHLIN Comment: Last colonscopy 12/2014 at [facility] in [place]: 1 polyp, repeat 5 years [facility] History of surgery Active Condition Apr 12, 2020 Entered By: MIRANDA LAUGHLIN Comment: T&AOct 2019 Entered By: MIRANDA LAUGHLIN Comment: TURP [facility] Hydronephrosis [facility] Hyperlipidemia Active Condition [facility] Impaired glucose tolerance Active Condition [facility] Male erectile disorder (ICD-9-CM 302.72/607.84) [facility] Neurogenic bladder Active Condition Apr 04, 2022 Entered By: MIRANDA LAUGHLIN Comment: ISC 6 x daily [facility] Osteopenia Active Condition Apr 12 020 Entered By: MIRANDA LAUGHLIN Comment: Dexa scan 06/08; osteopeniaOct 2019 Entered By: MIRANDA LAUGHLIN Comment: T6 compression fracture [facility] Personal History of Exposure to Agent [place] (ICD-9-CM V15.89) Active Condition [facility] Subjective tinnitus (ICD-9-CM 388.31) Active Condition [facility] Syncope Active Condition [facility] Diagnosis: ICD-10-CM H40.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, right eye, severe stage Active Diagnosis [facility] Diagnosis: ICD-10-CM I10 Essential (primary) hypertension Active Diagnosis [facility] Diagnosis: ICD-10-CM H40.10X3 Unspecified open-angle glaucoma, severe stage Active Diagnosis [facility] Medications Combined list of outpatient medications from [...] 30 MINUTES Apr 11, 2023Apr 11, 2024 [id number] E Jan 02, 2024 David LAUGHLIN [facility] ORAL ACTIVE 04/11/2024 [id number] 4 MUNIRA LAUGHLIN F 2022 12 [facility] ALENDRONATE 70MG TAB ALENDRON ATE 70MG TAB Disconti nued TAKE ONE TABLET BY MOUTH EVERY WEEK FOR OSTEOPOR OSIS -TAKE FIRST THING IN THE MORNING WITH WATER ONLY -AFTER TAKING, DO NOT EAT OR DRINK FOR 30 MINUTES AND REMAIN UPRIGHT FOR 30 MINUTES Apr 04, 2022 12 Apr 05, 2023 [id number] D Feb 03, 2023 David LAUGHLIN [facility] ORAL DISCONT INUED 04/05/2023 [id number] 3 MUNIRA LAUGHLIN 2021 12 [place] [facility] AMLODIPINE BESYLATE 10MG TAB AMLODIPI NE BESYLATE 10MG TAB Non-VA TAKE ONE TABLET BY MOUTH EVERY DAY Dec 09, 2012 Non-[facility] Document ed by: HILDA SALAZAR Document ed at: [facility] ORAL ACTIVE GARRICK SALAZAR A 2012 [facility] ATORVASTATI N CA 80MG TAB ATORVAST ATIN CA 80MG TAB Non-VA TAKE ONE-HALF TABLET BY MOUTH AT BEDTIME Jan 18, 2016 Non-VA Document ed by: Kassidy WALLACE Document ed at: [facility] ORAL ACTIVE NAZANIN WALLACE A 2015 [facility] CEPHALEXIN 250MG CAP CEPHALEX IN 250MG CAP Non-VA TAKE 1 CAPSULE BY MOUTH DAILY Mar 28, 2021 Non-VA Document ed by: David LAUGHLIN Document ed at: [facility] ORAL ACTIVE MUNIRA LAUGHLIN F 2020 [facility] FLUTICASONE SOLN,NASAL FLUTICAS ONE SOLN,ABENA AL Non-VA SPRAY IN EACH NOSTRIL Jan 10, 2015 Non-VA Document ed by: Kassidy WALLACE Document ed at: [facility] NASAL ACTIVE NAZANIN WALLACE A 2014 [facility] LOSARTAN 50MG TAB LOSARTAN 50MG TAB Non-VA TAKE TWO TABLETS BY MOUTH EVERY DAY Mar 28, 2021 Non-VA Document ed by: David LAUGHLIN Document ed at: [facility] ORAL ACTIVE MUNIRA LAUGHLINEY F 2020 [facility] LUBRICATING JELLY,TOP,B ACTERIOSTAT IC LUBRICAT ING JELLY,TO P,BACTER IOSTATIC Active APPLY JELLY DIRECTED ENDOSCOPY NURSE AL USE ONLY Apr 11, 2023 360 Apr 11, 2024 [id number] K November 08, 2023 David LAUGHLIN [facility] ACTIVE 04/11/2024 [id number] MUNIRA LAUGHLINEY F 2022 360 [facility] LUBRICATING JELLY,TOP,B ACTERIOSTAT IC LUBRICAT ING JELLY,TO P,BACTER IOSTATIC Disconti nued APPLY HONG DIRECTED ENDOSCOPY NURSE AL USE ONLY Apr 04, 2022 360 Apr 05, 2023 [id number] J November 10, 2022 David LAUGHLIN [facility] DISCONT INUED 04/05/2023 [id number] MUNIRA LAUGHLIN LSEY F 2021 360 [facility] METOPROLOL SUCCINATE 50MG TAB,SA METOPROL OL SUCCINAT E 50MG TAB,SA Non-VA TAKE ONE TABLET BY MOUTH TWICE A DAY Apr 30, 2023 Non-VA Document ed by: David LAUGHLIN Document ed at: [facility] ORAL ACTIVE MUNIRA LAUGHLINEY F 2022 [facility] OMEPRAZOLE 20MG CAP,EC OMEPRAZO LE 20MG CAP,EC Non-VA TAKE 1 CAPSULE BY MOUTH EVERY DAY Jan 10, 2015 Non-VA Document ed by: Kassidy WALLACE Document ed at: [facility] ORAL ACTIVE NAZANIN WALLACE 2014 [facility] POLYVINYL ALCOHOL 1.4%/POVIDO NE (PF) SOLN,OPH POLYVINY L ALCOHOL 1.4%/POV IDONE (PF) SOLN,OPH Active INSTILL 1 DROP IN RIGHT EYE SIX TIMES A DAY NEEDED FOR EYE IRRITATI ON FOR EYE IRRITATI ON November 07, 2023 120 November 07, 2024 [id number] November 07, 2023 Ton HENNESSY [facility] OPHTHA LMIC ACTIVE 11/07/2024 [id number] 4 TRACE HENNESSY RTLARA 2023 120 [facility] POLYVINYL ALCOHOL 1.4%/POVIDO NE (PF) SOLN,OPH POLYVINY L ALCOHOL 1.4%/POV IDONE (PF) SOLN,OPH Disconti nued INSTILL 1 DROP IN RIGHT EYE SIX TIMES A DAY NEEDED FOR EYE IRRITATI ON FOR EYE IRRITATI ON Feb 19, 2023 120 Feb 20, 2024 [id number] Feb 19, 2023 Ton HENNESSY [facility] OPHTHA LMIC DISCONT INUED 02/20/2024 [id number] TRACE HENNESSY RTHA 2022 120 [facility] POTASSIUM CHLORIDE 10MEQ TAB,SA POTASSIU M CHLORIDE 10MEQ TAB,SA Non-VA TAKE ONE TABLET BY MOUTH Mar 28, 2021 Non-VA Document ed by: David LAUGHLIN Document ed at: [facility] ORAL ACTIVE MUNIRA LAUGHLINEY F 2020 [facility] SILDENAFIL CITRATE 100MG TAB SILDENAF IL CITRATE 100MG TAB Non-VA TAKE ONE TABLET BY MOUTH NEEDED FOR ERECTILE DYSFUNCT ION Mar 28, 2021 Non-VA Document ed by: David LAUGHLIN Document ed at: [facility] ORAL ACTIVE MUNIRA LAUGHLINEY F 2020 [facility] Allergies, Adverse Reactions, Alerts Combined list of allergies from Department of Defense and Veterans Affairs facilities. It does not include entries that were removed or entered in error. Substance Category Reaction Severity Reaction type Status Date Reported Comments Source SULFA DRUGS Propensity to adverse reactions to drug (finding) active 3 [facility] Immunizations Combined list of available immunizations from the Department of Defense and Veterans Affairs facilities. Immunization Series Date Given Administered By Site Reaction Lot Number CVX Code Drug Equine Vet Status Comments Source INFLUENZA, HIGH-DOSE, QUADRIVALENT 2022 197 complet ed [facility] PNEUMOCOCCAL CONJUGATE PCV 13 2022 133 complet ed [facility] COVID-19 (PFIZER), MRNA, LNP-S, BIVALENT, PF, 30 MCG/0.3 ML DOSE 2021 300 complet ed [facility] INFLUENZA, HIGH-DOSE, QUADRIVALENT 2021 197 complet ed [facility] INFLUENZA, UNSPECIFIED FORMULATION 2021 88 complet ed [facility] COVID-19 (PFIZER), MRNA, LNP-S, PF, 30 MCG/0.3 ML DOSE 4 2020 208 complet ed [facility] COVID-19 (PFIZER), MRNA, LNP-S, PF, 30 MCG/0.3 ML DOSE 3 10/01/ 2021 208 complet ed [facility] INFLUENZA, HIGH-DOSE, QUADRIVALENT 2020 197 complet ed [facility] INFLUENZA, UNSPECIFIED FORMULATION 2020 88 complet ed [facility] COVID-19 (PFIZER), MRNA, LNP-S, PF, 30 MCG/0.3 ML DOSE 2020 208 complet ed [facility] ZOSTER RECOMBINANT 2020 187 complet ed [facility] ZOSTER RECOMBINANT 2 2020 187 complet ed [facility] COVID-19 (PFIZER), MRNA, LNP-S, PF, 30 MCG/0.3 ML DOSE 2 2020 208 complet ed [facility] COVID-19 (PFIZER), MRNA, LNP-S, PF, 30 MCG/0.3 ML DOSE 2020 208 complet ed [facility] COVID-19 (PFIZER), MRNA, LNP-S, PF, 30 MCG/0.3 ML DOSE 1 2020 208 complet ed [facility] ZOSTER RECOMBINANT 1 2019 187 complet ed [facility] TDAP 2019 115 complet ed [facility] INFLUENZA, UNSPECIFIED FORMULATION 2019 88 complet [facility] INFLUENZA, HIGH-DOSE, QUADRIVALENT 2019 197 complet [facility] ZOSTER RECOMBINANT 1 2019 187 complet ed [facility] INFLUENZA, RECOMBINANT, QUADRIVALENT, INJECTABLE, PRESERVATIVE FREE 2018 185 complet ed [facility] INFLUENZA, HIGH DOSE SEASONAL 2016 135 complet ed [facility] INFLUENZA, HIGH DOSE SEASONAL 2016 135 complet ed [facility] INFLUENZA, HIGH DOSE SEASONAL 2015 135 complet ed [facility] INFLUENZA, SEASONAL, INJECTABLE 2014 141 complet ed [facility] PNEUMOCOCCAL CONJUGATE PCV 13 2014 133 complet ed [facility] INFLUENZA, SEASONAL, INJECTABLE 2013 141 complet ed [facility] INFLUENZA, HIGH DOSE SEASONAL 2013 135 complet ed [facility] TDAP 2013 115 complet ed [employer] [id number] 11/21/15 [facility] INFLUENZA, UNSPECIFIED FORMULATION 2012 88 complet ed [facility] INFLUENZA, SEASONAL, INJECTABLE, PRESERVATIVE FREE 2012 140 complet ed [facility] ZOSTER LIVE 2012 121 complet ed [employer] [facility] INFLUENZA, SEASONAL, INJECTABLE, PRESERVATIVE FREE 2011 140 complet ed [facility] PNEUMOCOCCAL POLYSACCHARID E PPV23 2011 33 complet ed [facility] INFLUENZA, UNSPECIFIED FORMULATION 2011 88 complet ed [facility] PNEUMOCOCCAL, UNSPECIFIED FORMULATION 2011 109 complet ed [facility] INFLUENZA, SEASONAL, INJECTABLE 2010 141 complet ed [facility] INFLUENZA, SEASONAL, INJECTABLE, PRESERVATIVE FREE 2009 140 complet ed [facility] INFLUENZA, SEASONAL, INJECTABLE, PRESERVATIVE FREE 2008 140 complet ed [facility] INFLUENZA, SEASONAL, INJECTABLE 2007 141 complet ed [facility] Encounters Combined list of: 1) Encounters from Department of [facility] facilities going back up to thelast 18 months. 2) Encounters from the Department of Defense facilities going back up to 280 months. Location Location Details Encounter Type Encounter Number Reason For Visit Attending Provider ADM Date DC Date Status Disposition Source [facility] Outpatient Encounter [id number] 08/19 [facility] VISUAL FIELD EXAMINATIO N(S) [id number] Diagnos is: ICD-10- CM H40.141 3 Capslr glaucom a w/pseud xf lens, right eye, severe stage<b r/> JEROME GOMEZ 10/01 [facility] OFFICE O/P EST MOD 30-39 MIN [id number] Diagnos is: ICD-10- CM H40.141 3 Capslr glaucom a w/pseud xf lens, right eye, severe stage<b r/> RASHI HERNANDEZ 10/01 [facility] Outpatient Encounter [id number] QUINCYDAVI STEPHANIE MARRUFO 02/19 [facility] OFFICE O/P EST MOD 30-39 MIN [id number] Diagnos is: ICD-10- CM H40.141 3 Capslr glaucom a w/pseud xf lens, right eye, severe stage<b r/> DAVID,HAYDEN PRAFUL L 02/19 [facility] Outpatient Encounter [id number] 03/19 [facility] Outpatient Encounter [id number] 03/23 [facility] VISUAL FIELD EXAMINATIO N(S) [id number] Diagnos is: ICD-10- CM H40.10X 3 Unspeci fied open-an gle glaucom a, severe stage<b r/> JESS GOMEZ 04/01 [facility] OFFICE O/P EST MOD 30-39 MIN [id number] Diagnos is: ICD-10- CM H40.141 3 Capslr glaucom a w/pseud xf lens, right eye, severe stage<b r/> TORSTEN HENNESSY 04/01 [facility] Outpatient Encounter [id number] 04/01 [facility] Outpatient Encounter [id number] Diagnos is: ICD-10- CM I10 Essenti al (primar y) hyperte nsion<b r/> GEREMIAS LAUGHLIN F 04/11 [facility] EXTENDED VISUAL FIELD XM [id number] Diagnos is: ICD-10- CM H40.141 3 Capslr glaucom a w/pseud xf lens, right eye, severe stage<b r/> SERENITY,BARRAGAN RA R 11/06 [facility] OFFICE O/P EST MOD 30 MIN [id number] Diagnos is: ICD-10- CM H40.141 3 Capslr glaucom a w/pseud xf lens, right eye, severe stage<b r/> TORSTEN HENNESSY SHARON 11/06 [facility] Social History Combined list of available smoking, tobacco, and other social history from Department of Defense and [facility] facilities. Social History Type Response Date Comment Sourc e Tobacco smoking status [facility] VA-TOBACCO FORMER USER 04/11/2023 [facility] History of tobacco use RI-TOBACCO QUIT 1 5 YRS OR MORE 04/11/2023 [facility] History of tobacco use RI-TOBACCO FORMER USER 04/04/2022 [facility] History of tobacco use VA-TOBACCO QUIT 1 5 YRS OR MORE 03/28/2021 [facility] History of tobacco use RI-TOBACCO QUIT 1 5 YRS OR MORE 04/12/2020 [facility] History of tobacco use RI-TOBACCO QUIT 1 5 YRS OR MORE 06/24/2018 [facility] History of tobacco use FORMER TOBACCO US ER 7Y OR GREATER 09/23/2017 [facility] History of tobacco use FORMER TOBACCO US ER 7Y OR GREATER 01/02/2017 [facility] History of tobacco use FORMER TOBACCO US ER 7Y OR GREATER 01/18/2016 [facility] History of tobacco use FORMER TOBACCO US ER 7Y OR GREATER 01/10/2015 [facility] History of tobacco use FORMER TOBACCO US ER 7Y OR GREATER 01/06/2014 [facility] History of tobacco use FORMER TOBACCO US ER 7Y OR GREATER 10/19/2012 [facility] Plan of Care List of future care activities from Department of [facility] facilities. Additional future care activities may be listed in the Assessment and Plan section. Date/Time Care Activity Care Activity Detail Facili ty 05/07/2024 AMBULATORY - SURGERY AMBULATORY - SURGERY [facility] 05/07/2024 AMBULATORY - SURGERY AMBULATORY - SURGERY [facility]
--- OUTSIDE RECORDS SUMMARY | 2024-01-23 10:23 | XMS_ITS | Clinical Summary ---
Author Organization [facility] Address [place], [place] [address] Care Team Providers Care Mechanic Field Service Name Role Phone Matias Terry MD Primary Care Provider [phone] Allergies Active Allergy Reactions Criticality Noted Date [...] CDT Respiratory Rate 20 08/07/2005 4:45 PM [employer] Oxygen Saturation 100% 02/14/2015 8:49 AM CDT [...] Influenza for age 65+ 02/22/2024 Care Teams Mechanic Field Service Relationship Specialty Start Date End Date Matias Terry MD PCP - General Family Practice 02/14/15
--- NOTE | 2024-01-23 11:00 | CRLHL7_ITS ---
For Patients: As a result of the Century Cures Act, medical imaging exams and procedure reports are released immediately into your electronic medical record. You may view this report before your referring provider. If you have questions, please contact your health care provider. Indication: RLQ PAIN, INGUINAL PAIN Technique: CT Abdomen/Pelvis W/ 95CC ISOVUE [id number] Please note that all CT scans at this facility use dose modulation, iterative reconstruction, and/or weight-based dosing when appropriate to reduce radiation dose to as low as reasonably achievable. Comparison: 11/09/2012 Findings: Mild emphysematous changes are present within both lung bases along with mild right lower lobe scarring. No pleural effusion. Fatty infiltration of the liver is present. There are tiny sub 5 millimeter cysts within the inferior right hepatic lobe. Cardiomegaly. Spleen is normal. Small hiatal hernia measuring 2.5 cm. No adrenal nodule. The ureters are normal. The bladder wall is prominent. The bladder wall measures up to 5 millimeters. Left posterolateral bladder diverticulum is present measuring 2.3 cm. Parapelvic cysts are present regarding both kidneys bilaterally measuring up to 3.5 cm on the right and 2.3 cm on the left. No hydronephrosis. Vascular calcifications are present. No aneurysm. The gallbladder is incompletely distended. Possible small gallstone noted. Pancreatic parenchyma normal. Small incidental duodenal diverticulum. No intra-abdominal or intrapelvic adenopathy. No bowel obstruction, free air, free fluid or abscess. Grade 1 degenerative spondylolisthesis of L4 on L5. Chronic mild wedging of T12. The prostate is prominent at the superior aspect with mass effect upon the bladder. Impression: Prostatomegaly with lobular mass effect upon the inferior bladder. Bladder wall thickening with left posterolateral diverticulum. No hydronephrosis. Incidental bilateral renal parapelvic cysts. Gallbladder incompletely distended. Possible cholelithiasis. No biliary obstruction. Small hiatal hernia and cardiomegaly. No bowel obstruction or acute inflammatory changes. Please note that all CT scans at this facility use dose modulation, iterative reconstruction, and/or weight-based dosing when appropriate to reduce radiation dose to as low as reasonably achievable. Dictated by Bipin Brown MD @ 01/26/2024 10:00:47 AM (Electronically Signed)
== END 2024-01-23 10:22 | disposition home or self-care (01) ==
LOC: CT 10:22
PROVIDERS: PCP Family Medicine; Visit Provider Family Medicine
DX: R10.31 Right lower quadrant pain (principal); K44.9 Diaphragmatic hernia without obstruction or gangrene
CPT/HCPCS: 74177; Q9967

== ENCOUNTER 2024-04-06 08:54 | Outpatient (CLI) | payer MEDICARE, SELFPAY ==
--- OUTSIDE RECORDS SUMMARY | 2024-04-07 10:11 | XMS_ITS | Continuity of Care Document ---
Author Name [employer] Organization [facility] Care Team Providers Care School Traffic Guard Name Role Phone [facility] Unavailable Unavailable Problems Combined list of problems from Department of Defense and Veterans Affairs facilities. It does not include entries that were removed or entered in error. Problem Status Onset Date Problem Type Date of Resolution Comments Source Cataract (SCT 68339055) Active Condition Apr 12, 2020 Entered By: MIRANDA LAUGHLIN Comment: Right cataract surgery [facility] Essential hypertension (SNOMED CT 88011952) Active Condition [facility] Family social history Active Condition Mar 27, 2021 Entered By: MIRANDA LAUGHLIN Comment[facility] Entered By: MIRANDA LAUGHLIN Comment: Quit smoking >15 yrs ago.Apr 04, 2022 Entered By: MIRANDA LAUGHLIN Comment: Cares for at home, she has early AD. 6 children, assist with care. [facility] Gastro-esophageal reflux disease (SNOMED CT 108916076) Active Condition [facility] Glaucoma Active Condition [facility] Hearing Loss, Partial * (ICD-9-CM 389.9) [facility] History of Polyp of Colon (SCT 513035834) Active Condition Apr 12, 2020 Entered By: MIRANDA LAUGHLIN Comment: Last colonscopy 12/2014 at [facility]: 1 polyp, repeat 5 years [facility] History of surgery Active Condition Apr 12, 2020 Entered By: MIRANDA LAUGHLIN Comment: T&AOct 2019 Entered By: MIRANDA LAUGHLIN Comment: TURP [facility] Hydronephrosis [facility] Hyperlipidemia [facility] Impaired glucose tolerance Active Condition [facility] Male erectile disorder (ICD-9-CM 302.72/607.84) [facility] Neurogenic bladder Active Condition Apr 04, 2022 Entered By: MIRANDA LAUGHLIN Comment: ISC 6 x daily [facility] Osteopenia Active Condition Apr 12 Entered By: MIRANDA LAUGHLIN Comment: Dexa scan 06/08; osteopeniaOct 2019 Entered By: MIRANDA LAUGHLIN Comment: T6 compression fracture [facility] Personal History of Exposure to Agent [place] (ICD-9-CM V15.89) Active Condition [facility] Subjective tinnitus (ICD-9-CM 388.31) Active Condition [facility] Syncope Active Condition [facility] Diagnosis: ICD-10-CM H40.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 Medication Details Route Status Patient Instructions Prescription Expires Prescription Number Last Dispense Date Ordering Provider Order Date Order Qty Source ALENDRONATE 70MG TAB TAKE ONE TABLET BY MOUTH EVERY WEEK FOR OSTEOPOR OSIS -TAKE FIRST THING IN THE MORNING WITH WATER ONLY -AFTER TAKING, DO NOT EAT OR DRINK FOR 30 MINUTES AND REMAIN UPRIGHT FOR 30 MINUTES ORAL ACTIVE 04/11/2024 [id number] MUNIRA LAUGHLIN F 2022 12 [facility] ALENDRONATE 70MG TAB TAKE ONE TABLET BY MOUTH EVERY WEEK FOR OSTEOPOR OSIS -TAKE FIRST THING IN THE MORNING WITH WATER ONLY -AFTER TAKING, DO NOT EAT OR DRINK FOR 30 MINUTES AND REMAIN UPRIGHT FOR 30 MINUTES ORAL DISCONT INUED 04/05/2023 [id number] 3 MUNIRA LAUGHLIN F 2021 12 [facility] AMLODIPINE BESYLATE 10MG TAB TAKE ONE TABLET BY MOUTH EVERY DAY ORAL ACTIVE GARRICK SALAZAR A 2012 [facility] ATORVASTATI N [place] 80MG TAB TAKE ONE-HALF TABLET BY MOUTH AT BEDTIME ORAL ACTIVE NAZANIN WALLACE A 2015 [facility] CEPHALEXIN 250MG CAP TAKE 1 CAPSULE BY MOUTH DAILY ORAL ACTIVE MUNIRA LAUGHLINEY F 2020 [facility] FLUTICASONE SOLN,NASAL SPRAY IN EACH NOSTRIL NASAL ACTIVE WALLACE,LA URA A 2014 [facility] LOSARTAN 50MG TAB TAKE TWO TABLETS BY MOUTH EVERY DAY ORAL ACTIVE MUNIRA LAUGHLINEY F 2020 [facility] LUBRICATING JELLY,TOP,B ACTERIOSTAT IC APPLY JELLY DIRECTED FINANCIAL REPORTING SPECIALIST AL USE ONLY ACTIVE 04/11/2024 [id number] 4 MUNIRA LAUGHLINEY F 2022 360 [facility] METOPROLOL SUCCINATE 50MG TAB,SA TAKE ONE TABLET BY MOUTH TWICE A DAY ORAL ACTIVE MUNIRA LAUGHLINEY F 2022 [facility] OMEPRAZOLE 20MG CAP,EC TAKE 1 CAPSULE BY MOUTH EVERY DAY ORAL ACTIVE WALLACE,LA URA A 2014 [facility] POLYVINYL ALCOHOL 1.4%/POVIDO NE (PF) SOLN,OPH INSTILL 1 DROP IN RIGHT EYE SIX TIMES A DAY NEEDED FOR EYE IRRITATI ON OPHTHA LMIC ACTIVE 11/07/2024 [id number] 4 TRACE HENNESSY [facility] 2023 120 [facility] POLYVINYL ALCOHOL 1.4%/POVIDO NE (PF) SOLN,OPH INSTILL 1 DROP IN RIGHT EYE SIX TIMES A DAY NEEDED FOR EYE IRRITATI ON OPHTHA LMIC DISCONT INUED 02/20/2024 [id number] TRACE HENNESSY [facility] 2022 120 [facility] POTASSIUM CHLORIDE 10MEQ TAB,SA TAKE ONE TABLET BY MOUTH ORAL ACTIVE MUNIRA LAUGHLINEY F 2020 [facility] SILDENAFIL CITRATE 100MG TAB TAKE ONE TABLET BY MOUTH NEEDED FOR ERECTILE DYSFUNCT ION ORAL ACTIVE MUNIRA LAUGHLINEY F 2020 [facility] Allergies, Adverse Reactions, Alerts Combined list of allergies from Department of Defense and Veterans Affairs facilities. It does not include entries that were removed or entered in error. Substance Category Reaction Severity Reaction type Status Date Reported Comments Source SULFA DRUGS Propensity to adverse reactions to drug (finding) active 3 [facility] Immunizations Combined list of available immunizations from the Department of Defense and Veterans Affairs facilities. Immunization Series Date Given Administered By Site Reaction Lot Number CVX Code Drug Quality Improvement Specialist Status Comments Source INFLUENZA, HIGH-DOSE, QUADRIVALENT 2022 197 complet [facility] PNEUMOCOCCAL CONJUGATE PCV 13 2022 133 complet [facility] COVID-19 (PFIZER), MRNA, LNP-S, BIVALENT, PF, 30 MCG/0.3 ML DOSE 2021 300 complet [facility] INFLUENZA, HIGH-DOSE, QUADRIVALENT 2021 197 complet [facility] INFLUENZA, UNSPECIFIED FORMULATION 2021 88 complet [facility] COVID-19 (PFIZER), MRNA, LNP-S, PF, 30 MCG/0.3 ML DOSE 4 2020 208 complet [facility] COVID-19 (PFIZER), MRNA, LNP-S, PF, 30 MCG/0.3 ML DOSE 3 2020 208 complet [facility] INFLUENZA, HIGH-DOSE, QUADRIVALENT 2020 197 complet [facility] INFLUENZA, UNSPECIFIED FORMULATION 2020 88 complet [facility] COVID-19 (PFIZER), MRNA, LNP-S, PF, 30 MCG/0.3 ML DOSE 2020 208 complet [facility] ZOSTER RECOMBINANT 2020 187 complet [facility] ZOSTER RECOMBINANT 2 2020 187 complet ed [facility] COVID-19 (PFIZER), MRNA, LNP-S, PF, 30 MCG/0.3 ML DOSE 2 2020 208 complet [facility] COVID-19 (PFIZER), MRNA, LNP-S, PF, 30 MCG/0.3 ML DOSE 2020 208 complet [facility] COVID-19 (PFIZER), MRNA, LNP-S, PF, 30 MCG/0.3 ML DOSE 1 2020 208 complet ed [facility] ZOSTER RECOMBINANT 1 2019 187 complet ed [facility] TDAP 2019 115 complet ed [facility] INFLUENZA, UNSPECIFIED FORMULATION 2019 88 complet ed [facility] INFLUENZA, HIGH-DOSE, QUADRIVALENT 2019 197 complet ed [facility] ZOSTER RECOMBINANT 1 2019 187 complet ed [facility] INFLUENZA, RECOMBINANT, QUADRIVALENT, INJECTABLE, PRESERVATIVE FREE 2018 185 complet ed [facility] INFLUENZA, HIGH DOSE SEASONAL 2016 135 complet ed [facility] INFLUENZA, HIGH DOSE SEASONAL 2016 135 complet ed [facility] INFLUENZA, HIGH DOSE SEASONAL 2015 135 complet ed [facility] INFLUENZA, SEASONAL, INJECTABLE 2014 141 complet ed [facility] PNEUMOCOCCAL CONJUGATE PCV 13 2014 133 complet ed [facility] INFLUENZA, SEASONAL, INJECTABLE 2013 141 complet ed [facility] INFLUENZA, HIGH DOSE SEASONAL 2013 135 complet ed [facility] TDAP 2013 115 complet ed [employer] hkline [id number] 11/21/15 [facility] INFLUENZA, UNSPECIFIED FORMULATION 2012 88 complet ed [facility] INFLUENZA, SEASONAL, INJECTABLE, PRESERVATIVE FREE 2012 140 complet ed [facility] ZOSTER LIVE 2012 121 complet ed [employer] [facility] INFLUENZA, SEASONAL, INJECTABLE, PRESERVATIVE FREE 2011 140 complet ed [facility] PNEUMOCOCCAL POLYSACCHARID E PPV23 2011 33 complet ed [facility] INFLUENZA, UNSPECIFIED FORMULATION 2011 88 complet ed [facility] PNEUMOCOCCAL, UNSPECIFIED FORMULATION 2011 109 complet ed [facility] INFLUENZA, SEASONAL, INJECTABLE 2010 141 complet ed [facility] INFLUENZA, SEASONAL, INJECTABLE, PRESERVATIVE FREE 2009 140 complet ed [facility] INFLUENZA, SEASONAL, INJECTABLE, PRESERVATIVE FREE 2008 140 complet ed [facility] INFLUENZA, SEASONAL, INJECTABLE 2007 141 complet ed [facility] Encounters Combined list of: 1) Encounters from Department of [facility] Affairs facilities going back up to thelast 18 months. 2) Encounters from the Department of Defense facilities going back up to 280 months. Location Location Details Encounter Type Encounter Number Reason For Visit Attending Provider ADM Date DC Date Status Disposition Source [facility] Outpatient Encounter [id number] DAVI MATHEW 02/19 [facility] OFFICE O/P EST MOD 30-39 MIN [id number] Diagnos is: ICD-10- CM H40.141 3 Capslr glaucom a w/pseud xf lens, right eye, severe stage<b r/> HAYDEN HERNANDEZ 02/19 [facility] Outpatient Encounter [id number] 03/19 [facility] Outpatient Encounter [id number] 03/23 [facility] VISUAL FIELD EXAMINATIO N(S) [id number] Diagnos is: ICD-10- CM H40.10X 3 Unspeci fied open-an gle glaucom a, severe stage<b r/> JESS GOMEZ 04/01 [facility] OFFICE O/P EST MOD 30-39 MIN [id number] Diagnos is: ICD-10- CM H40.141 3 Capslr glaucom a w/pseud xf lens, right eye, severe stage<b r/> TORSTEN HENNESSY 04/01 [facility] Outpatient Encounter [id number] 04/01 [facility] Outpatient Encounter [id number] Diagnos is: ICD-10- CM I10 Essenti al (primar y) hyperte nsion<b r/> GEREMIAS LAUGHLIN F 04/11 [facility] EXTENDED VISUAL FIELD XM [id number] Diagnos is: ICD-10- CM H40.141 3 Capslr glaucom a w/pseud xf lens, right eye, severe stage<b r/> LAUREL BENTON RA R 11/06 [facility] OFFICE O/P EST MOD 30 MIN [id number] Diagnos is: ICD-10- CM H40.141 3 Capslr glaucom a w/pseud xf lens, right eye, severe stage<b r/> TORSTEN HENNESSY SHARON 11/06 [facility] Social History Combined list of available smoking, tobacco, and other social history from Department of Defense and Veterans Affairs facilities. Social History Type Response Date Comment Sour e Tobacco smoking status PRIS VA-TOBACCO FORMER USER 04/11/2023 [facility] History of tobacco use MA-TOBACCO QUIT 1 5 YRS OR MORE 04/11/2023 [facility] History of tobacco use MA-TOBACCO FORMER USER 04/04/2022 [facility] History of tobacco use MA-TOBACCO QUIT 1 5 YRS OR MORE 03/28/2021 [facility] History of tobacco use MA-TOBACCO FORMER USER 04/12/2020 [facility] History of tobacco use MA-TOBACCO QUIT 1 5 YRS OR MORE 06/24/2018 [facility] History of tobacco use FORMER TOBACCO US ER 7Y OR GREATER 09/23/2017 [facility] History of tobacco use FORMER TOBACCO US ER 7Y OR GREATER 01/02/2017 [facility] History of tobacco use FORMER TOBACCO US ER 7Y OR GREATER 01/18/2016 [facility] History of tobacco use FORMER TOBACCO US ER 7Y OR GREATER 01/10/2015 [facility] History of tobacco use FORMER TOBACCO US ER 7Y OR GREATER 01/06/2014 [facility] History of tobacco use FORMER TOBACCO US ER 7Y OR GREATER 10/19/2012 [facility] Plan of Care List of future care activities from Department of Veterans Affairs facilities. Additional future care activities may be listed in the Assessment and Plan section. Date/Time Care Activity Care Activity Detail Facili ty 04/19/2024 AMBULATORY - MEDICINE AMBULATORY - MEDICI [facility] 05/07/2024 AMBULATORY - SURGERY AMBULATORY - SURGERY [facility] 05/07/2024 AMBULATORY - SURGERY AMBULATORY - SURGERY [facility]
--- OUTSIDE RECORDS SUMMARY | 2024-04-07 10:11 | XMS_ITS | Clinical Summary ---
Author Organization [employer] [facility] Address [place], [place] [address] Care Team Providers Care Artist Mannequin Coloring Name Role Phone Matias Terry MD Primary Care Provider [phone] Allergies Active Allergy Reactions Criticality Noted Date [...] Noted Date Diagnosed Date Colon polyp 04/25/2010 Overview (02/16/2015): Colonoscopy 03/2010 polyp repeat in 5 years [...] CDT Respiratory Rate 20 08/07/2005 4:45 PM [employer] Oxygen Saturation 100% 02/14/2015 8:49 AM CDT [...] 65+ (1 of 1 - PCV) 011 RSV vaccine for adults or pr egnancy (1 - 1-dose 75+ series) 2020 COVID-19 vaccine series ( - 2023- season) 4 Influenza for age 65+ 02/22/2024 Care Teams Artist Mannequin Coloring Relationship Specialty Start Date End Date Matias Terry MD PCP - General Family Practice 02/14/15
== END 2024-04-06 08:55 | disposition home or self-care (01) ==
LOC: NFLDREF 04-07 10:09
PROVIDERS: PCP Family Medicine; Referring Provider Family Medicine; Visit Provider Family Medicine
DX: I10 Essential (primary) hypertension (principal); E78.5 Hyperlipidemia, unspecified
CPT/HCPCS: 80053; 80061

== ENCOUNTER 2025-04-05 08:04 | Outpatient (CLI) | payer MEDICARE, SELFPAY | END 2025-04-05 08:05 | disposition home or self-care (01) | LOC: NFLDREF 04-07 11:24 | PROVIDERS: PCP Family Medicine; Referring Provider Family Medicine; Visit Provider Family Medicine | DX: E78.5 Hyperlipidemia, unspecified (principal); N40.0 Benign prostatic hyperplasia without lower urinary tract symptoms; Z12.5 Encounter for screening for malignant neoplasm of prostate | CPT/HCPCS: 80053; 80061; G0103 ==

== ENCOUNTER 2025-04-26 11:38 | Outpatient (CLI) | payer MEDICARE, SELFPAY | END 2025-04-26 11:39 | disposition home or self-care (01) | PROVIDERS: PCP Family Medicine; Visit Provider Family Medicine | DX: R53.83 Other fatigue (principal) | CPT/HCPCS: 82607; 84443 ==

== ENCOUNTER 2025-06-06 12:01 | Outpatient (CLI) | payer MEDICARE, SELFPAY | END 2025-06-06 12:02 | disposition home or self-care (01) | LOC: LKVREF 12:02 | PROVIDERS: PCP Family Medicine; Visit Provider Family Medicine | DX: N39.0 Urinary tract infection, site not specified (principal); R53.1 Weakness | CPT/HCPCS: 80048; 87086 ==